=== PATIENT | female | born 1995 ===

== ENCOUNTER 2017-07-18 16:52 | Emergency (ER) | payer OTHER ==
[~2017-07-18] VITALS: Ht 165.1 cm; Wt 106.6 kg
[~2017-07-18 16:52] MED LIST: DOLOGESIC CAPLE1 TAB PO; MOTRIN800 MG PO; SEPTRA DS TABLE1 TAB PO
== END 2017-07-18 19:27 | disposition home or self-care (01) ==
LOC: ER 16:52
DX: R42 Dizziness and giddiness (principal)

== ENCOUNTER 2018-09-06 13:44 | Emergency (ER) | payer OTHER ==
[~2018-09-06] VITALS: Ht 165.1 cm; Wt 130.6 kg
== END 2018-09-06 17:50 | disposition home or self-care (01) ==
LOC: ER 13:44
DX: S33.5XXA Sprain of ligaments of lumbar spine, initial encounter (principal); M62.838 Other muscle spasm; W18.39XA Other fall on same level, initial encounter; Y93.89 Activity, other specified; Y92.89 Other specified places as the place of occurrence of the external cause; Y99.8 Other external cause status